=== PATIENT | female | born 2005 | race Caucasian/White ===

== ENCOUNTER 2025-07-06 09:10 | Outpatient (AMB) | payer OTHER, SELFPAY ==
--- OUTSIDE RECORDS SUMMARY | 2024-10-17 09:30 | XMS_ITS ---
Author Organization [facility] Address [address] [place] [address] [address] [place], [place] [id number] Care Team Providers Care Oil Truck Driver Name Role Phone Thuan BARRON, Steve Unavailable Unavailable Junito Flores Unavailable [phone] REASON FOR VISIT Flores/NEW/Left Hip Encounters Encounter Location Date Provider Diagnosis [facility] [address] [facility] [address] [place], [place] [id number] 10/17/2024 Junito Flores Plan Of Treatment No Information Progress Notes * [place] MCKENZIEB:2005 (20 yo F)Acc No.[id number]:10/17/2024 Progress Note Patient: Awilda Pappas Provider: Ramonita Flores MD :2005 A ge:19 Y S ex:Female Date:10/17/2024 Phone: Address:[address] [facility] Subjective: * Chief Complaints: * P rice/NEW/Left Hip * Electronic signature of Junito Flores MD on 07/06/2025 at 09:20 AM OTHER SPORTS COACH OR INSTRUCTOR Sign off status: Pending * Provider: Ramonita Flores MD Date: 0 10/17/2024 Generated for Priscilla obando/Avril/eTransmitting on: 1 09/06/2024 09:20 AM OTHER SPORTS COACH OR INSTRUCTOR
--- OUTSIDE RECORDS SUMMARY | 2024-11-21 04:00 | XMS_ITS ---
Author Organization [facility] Address [address] [id number] Care Team Providers Care Photovoltaic Solar Cell Designer Name Role Phone Steve Larose MD Unavailable Unavailable Douglas Haq Unavailable [phone] REASON FOR VISIT Dierckman/Left hip Encounters Encounter Location Date Provider Diagnosis [address] [place], [place] [id number] 11/21/2024 Douglas Haq Labral tear of left hip joint S73.192A and Femoroacetabular impingement of left hip M25.852 Assessments Encounter Date Diagnosis (ICD Code) Assessment Notes Treatment Notes Treatment Clinical Notes Section Notes 11/21/2024 Labral tear of left hip joint (ICD-10 - S73.192A) 11/21/2024 Femoroacetabular impingement of left hip (ICD-10 - M25.852) Plan Of Treatment No Information Progress Notes * Melania MCKENZIEKellieB:2005 (20 yo F)Acc No.[id number]:11/21/2024 Patient: Awilda Pappas Provider: Pranav Haq MD :2005 A ge:19 Y S ex:Female Date:11/21/2024 Phone: Address[facility] [facility] Billing Information: * Procedure Codes: 98426 SCOPE HIP LABRAL REPA[place] [address] SCOPE HIP WITH FEMOROPLASTY. Modifiers: LT G9316 DOC PT RSK ASSESS RSK CALC W/PT/FAM. * Electronic signature of Mary Jane Haq MD on 07/06/2025 at 09:19 AM CAMERA SYSTEMS ENGINEER Sign off status: Pending * Provider: Pranav Haq MD Date: 0 11/21/2024 Generated for Priscilla obando/Avril/Arielle on: 1 09/06/2024 09:19 AM CAMERA SYSTEMS ENGINEER
--- NOTE | 2025-07-06 09:06 | A.OFFPC_ITS ---
Vital Signs 07/06/25 09:10 Height 5 ft 1 in Weight 126 lb BMI 23.8 BP 122/70 Blood Pressure Location Rt brachial Position Sitting Pulse 62 Pulse Source Pulse Oximeter Temp 98 F Temp Source Temporal Artery Scan Pulse Oximetry (%) 99 Oxygen Delivery Method Room Air Intake Visit Reasons: DICTAPHONE TYPIST-ACNE Labor Commissioner Required: No Accompanied by: Self / Same As Patient Allergies No Known Allergies Allergy (Verified 07/06/25 09:08) Medication List - Last Reconciled 07/06/25 by Rickey Oliveira MD etonogestrel (Nexplanon) subdermal Tobacco use date assessed: 07/06/25 Dental Screening Dental Screen Date: 07/06/25 Did you have a dental visit in the last 12 months?: No Did you have a dental problem in the last 6 months where you did not have access to dental care?: No HPI HPI Comments History of Present Illness0 Details History of Present Illness The patient is a 20 year old female presenting for evaluation of a facial lesion and to establish care. This is her first visit at an adult practice after previously seeing a special duty nurse. The primary concern is a facial lesion that has been present for two to three weeks, which has been getting bigger, redder, and painful. The lesion bled the day prior to the visit, and she reports that when it bleeds, the size decreases before it re-forms. She has tried using pimple patches and antibiotic cream without any improvement. She denies any yellowish discharge from the lesion. The patient's past surgical history is significant for a hip labrum repair following an MRI-confirmed tear. She uses a Nexplanon implant for contraception, which was placed on 07/30/2023 and is due for replacement in 2028. She reports a past history of a Pap smear. Her family history is positive for heart murmurs but negative for sudden cardiac . She denies any personal history of smoking or alcohol use, and reports past marijuana use a couple of years ago but is not a current user. She has no known allergies. Medical History: - Establishing care with new primary car e provider - No chronic medical conditions Surgical History: - Hip labrum surgery Medications: - Nexplanon subdermal implant for contra ception, placed 07/30/2023 Family History: - Heart murmurs - Denies family history of sudden cardia c deaths Social History - Occupation: Works at the [employer]. - Sun Exposure: Denies significant sun e xposure due to work. - Tobacco Use: Denies smoking. - Alcohol Use: Denies alcohol use. - Substance Use: Denies current use; rep orts using marijuana a couple of years ago. - Contraception: Uses a Nexplanon implan t. [facility] Medical History (Updated 07/06/25 @ 09:46 by Rickey Oliveira MD) Annual physical exam Encounter for surveillance of other contraceptives Lesion of face Family History (Updated 07/06/25 @ 09:18 by Clarice Luna MA) Mother No problems noted. Father No problems noted. Social History Housing: House Patient Tobacco Use Status: Never used Tobacco e-Cigarette/Vaping Use: Never Used service: No Current occupational status: employed Cognitive needs: No Hearing needs: No Vision needs: No Questionnaire PHQ-9 Over the last 2 weeks, how often have you been bothered by any of the following problems? 1. Little interest or pleasure in doing things: not at all 2. Feeling down, depressed, or hopeless: not at all 3. Trouble falling or staying asleep, or sleeping too much: nearly every day 4. Feeling tired or having little energy: not at all 5. Poor appetite or overeating: not at all 6. Feeling bad about yourself - or that you are a failure or have let yourself or your family down: not at all 7. Trouble concentrating on things, such as reading the newspaper or watching television: not at all 8. Moving or speaking so slowly that other people could have noticed. Or the opposite - being so fidgety or restless that you have been moving around a lot more than usual: not at all 9. Thoughts that you would be better off or of hurting yourself in some way: not at all Total score: 3 Depression Screening Interpretation: Negative Depression Screening Done: Yes 33941 - PHQ-9 Billing: Yes Source: Developed by Drs. Sahil Cooper, Bettie Loo, Alex Hagan and colleagues, with an educational charlette from [employer]. Thrive Questionnaire Date Thrive assessed: 07/06/25 I am a: Patient Within the past 12 months, did the food you bought not last and you didn't have the money to get more?: Never true Within the past 12 months, did you worry whether your food would run out before you got money to buy more?: Never true Do you have trouble paying for medicines?: No Do you have trouble getting transportation to medical appointments?: No Do you have trouble paying your heating and electricity bill?: No Do you have trouble taking care of your child, family member or friend?: No Do you have trouble with day-to-day activities such as bathing, preparing meals, shopping, managing finances, etc.?: No Are you currently unemployed and looking for a job?: No Are you interested in more education?: No THRIVE Score: 0 AUDIT C Alcohol Use Questionnaire (AUDIT-C) 1. How often do you have a drink containing alcohol?: Never 3. How often do you have six or more drinks on one occasion?: Never Total Score: 0 MARYANN-7 AMB Questionnaire MARYANN-7 Date MARYANN - 7 assessed: 07/06/25 Feeling nervous, anxious, or on edge: 0 = Not at all Not being able to stop or control worryin = Not at all Worrying too much about different things: 0 = Not at all Trouble relaxin = Not at all Being so restless that it is hard to sit still: 0 = Not at all Becoming easily annoyed or irritable: 0 = Not at all Feeling afraid as if something awful might happen: 0 = Not at all Total MARYANN-7 score (0-4 normal; 5-9 mild; 10-14 moderate; 15-21 severe): 0 Source: Developed by Drs. Sahil Cooper, Bettie Loo, Alex Hagan and colleagues, with an educational charlette from [employer]. MARYANN-7 Assessment Billing MARYANN-7 Assessment Tool: MARYANN-7 Assessment 33708 Review of Systems Narrative Review of Systems - Constitutional: Denies excessive weight loss or weight gain, fevers, or chills. - Integumentary: Reports a growing, red, and painful lesion on her face for the past 2-3 weeks that intermittently bleeds. - All other systems reviewed and are negative. All systems reviewed & are unremarkable except as reviewed in HPI and above Physical exam (Primary Care) Vital Signs: Last Vital Signs Temp 98 F 07/06/25 09:10 Pulse 62 07/06/25 09:10 BP 122/70 07/06/25 09:10 Pulse Ox 99 07/06/25 09:10 Oxygen Delivery Method Room Air 07/06/25 09:10 BMI result Body Mass Index 23.8 Tobacco/Smoking Status: Tobacco use Status Tobacco use date assessed 07/06/25 07/06/25 09:10 Patient Tobacco Use Status Never used Tobacco 07/06/25 09:10 e-Cigarette/Vaping Use Never Used 07/06/25 09:10 PHQ-9: PHQ-9 Score PHQ-9: Total score 3 07/06/25 09:46 Depression Screening Interpretation: Negative Thrive Assessment: Date of Thrive Assessment Date Thrive assessed 07/06/25 07/06/25 09:10 Narrative Physical Exam General: +Alert and oriented, Well nourished, No acute distress. Eye: Pupils are equal, round and reactive to light, Intact accommodation, Extraocular movements are intact, Normal conjunctiva, Vision unchanged. HENT: Normocephalic, Atraumatic, Tympanic membranes are clear, Normal hearing, Oral mucosa is moist, No pharyngeal erythema, Ear canals patent. Respiratory: Lungs CTA bilaterally, No wheeze, Respirations are non-labored. Cardiovascular: Regular rate, Regular rhythm, S1 auscultated, S2 auscultated, No murmur, Good pulses equal in all extremities, Normal peripheral perfusion, No edema. Gastrointestinal: Soft, Non-tender, Non-distended, Normal bowel sounds, No organomegaly. Musculoskeletal: Normal range of motion, Normal strength, No tenderness, No swelling, No deformity, Normal gait. Integumentary: Warm, Dry, [place], Intact, Lesion on face noted, described as crusted over, painful, and occasionally bleeding. Neurologic: Alert, Oriented, Normal sensory, Normal motor function, No focal defects, Cranial Nerves II-XII are grossly intact, Normal deep tendon reflexes. Psychiatric: Cooperative, Appropriate mood & affect, Normal judgment. Coding Level of Care Code New Pt Prev Care 18-39yr(95393 Diagnoses Lesion of face L98.9 Encounter for surveillance of other contraceptives Z30.49 Annual physical exam Z00.00 Additional Codes MARYANN-7 Assessment Billing - MARYANN-7 Assessment Tool: MARYANN-7 Assessment 74213 ([id number]) PHQ-9 - 78982 - PHQ-9 Billing: Yes ([id number]) Assessment & Plan Assessment & Plan (1) Lesion of face: Comment: - The patient presents with a painful, crusted facial lesion of 2-3 weeks duration. - The differential is broad but a secondary bacterial infection is possible. - It does not appear to be acne. - The plan is to start doxycycline 100 mg for 5 days to cover for a potential skin and soft tissue infection. - The patient was advised not to manipulate the lesion and to let it dry out. - A referral to dermatology will be placed for further evaluation. - The patient was educated on red flag symptoms, including spreading erythema, or involvement of the eyes, jaw, or teeth, which would warrant an emergency room visit. Code(s): L98.9 - Disorder of the skin and subcutaneous tissue, unspecified Category: Medical (2) Encounter for surveillance of other contraceptives: Comment: - The patient is on a Nexplanon implant for control, which was placed on 07/30/2023. - The device is current and does not need to be replaced until 2028. - No changes to her contraceptive plan are indicated at this time. Code(s): Z30.49 - Encounter for surveillance of other contraceptives Category: Medical (3) Annual physical exam: Comment: - This visit serves to establish primary care for this 20-year-old female. - A baseline annual physical was performed. - Baseline labs including a CBC, CMP, lipid panel, TSH, vitamin D, HIV screen, syphilis screen, hepatitis panel, and urinalysis will be ordered. - Her Pap smear history was reviewed, and she reports having had one in the past. - She has an upcoming appointment for her flu shot. - The patient will follow up in one year for her next annual exam, or sooner if needed. - She will be called with any abnormal lab results. Code(s): Z00.00 - Encounter for general adult medical examination without abnormal findings Category: Medical Plan: Health Maintenance: - Annual physical examination performed. - Baseline labs ordered including: CBC, CMP, lipids, thyroid function, vitamin D, HIV screen, syphilis screen, hepatitis panel, and urinalysis. - Pap smear: Patient reports having prior screening. - Contraception: Patient is using a Nexplanon subdermal implant, placed 07/30/2023. - Immunizations: Patient has an appointment scheduled for her flu shot and declined receiving it during the visit. Patient was informed and verbally consented to the use of an ambient scribe for clinic note documentation during this visit. Vital signs reviewed. Comprehensive history, review of systems, and physical exam completed. Medications, allergies, and problem list reviewed and updated. Counseling provided on nutrition, regular exercise, sleep hygiene, and moderation of alcohol use. Discussed age-appropriate screenings (mammogram, colonoscopy, Pap, bone density) and immunizations (flu, COVID, shingles, Tdap). Screened for depression, fall risk, and home safety; no current concerns. Discussed stress management, dental and vision care, and importance of ongoing preventive follow-up. Routine labs ordered for metabolic and lipid screening. Patient educated on healthy lifestyle and agrees with the plan. Plan I discussed my findings regarding the patient's facial lesion, explaining that it appears to be a crusted lesion rather than acne. For safety, I have prescribed a course of doxycycline in case of an underlying infection. I advised her not to touch the lesion and to allow it to dry out. I also placed a referral to dermatology for specialist evaluation, noting that she could cancel it if the lesion resolves. I educated her on the warning signs that would necessitate a visit to the emergency room, such as spreading redness or involvement of her eyes, jaw, or teeth. We treated this visit as her annual physical and I informed her that I was ordering a comprehensive set of baseline bloodwork and a urine test. I informed her that she will be contacted with any abnormal results and that she should follow up in one year for her next routine exam. I also provided instructions on how to set up her patient portal to view results and communicate with the clinic. Orders: Orders Hemoglobin A1c Today Z00.00 - Encounter for general adult medical examination without abnormal findings Hepatitis A,B,C Profile Today Z00.00 - Encounter for general adult medical examination without abnormal findings Microalbumin, Random (w Creat) Today Z00.00 - Encounter for general adult medical examination without abnormal findings TSH reflex Free T4 Today Z00.00 - Encounter for general adult medical examination without abnormal findings Complete Blood Count Auto Diff Today Z00.00 - Encounter for general adult medical examination without abnormal findings Comprehensive Met. Panel Today Z00.00 - Encounter for general adult medical examination without abnormal findings HIV Ab/Ag Today Z00.00 - Encounter for general adult medical examination without abnormal findings Lipid Panel Today Z00.00 - Encounter for general adult medical examination without abnormal findings Syphilis Screen Today Z00.00 - Encounter for general adult medical examination without abnormal findings Vitamin D 25-OH Total Today Z00.00 - Encounter for general adult medical examination without abnormal findings Referrals Dermatology Referral L98.9 - Disorder of the skin and subcutaneous tissue, unspecified Medications: New doxycycline hyclate 100 mg PO BID 10 caps 0RF Patient Instructions: - Take the doxycycline prescription for 5 days as directed. - Do not touch, cover, or pick at the lesion on your face. - Let the lesion dry out, but you may moisturize the area around it. - Go to the emergency room if the lesion's redness spreads or if it involves your jaw, teeth, or eyes. - A referral to a student records specialist (university teacher) has been made, and their office will contact you for an appointment. - Please go to the lab across the [place] to have your blood work done. - You will be contacted if any of your lab results are abnormal. - Information was provided to sign up for the patient portal to view your results. - Please keep your scheduled appointment to receive your flu shot. - Schedule your next annual physical exam for one year from now.
[2025-07-06 09:10] VITALS: BP 122/70; PULSE 62; TEMP 36.6; O2SAT 99; BMI 23.8
--- OUTSIDE RECORDS SUMMARY | 2025-07-06 10:19 | XMS_ITS | Encounter Summary ---
Author Organization [facility] Address [address] [place] [address] Phone Care Team Providers Care Sailboat Captain Name Role Phone Dania Tyler MD Primary Care Provider [phone] Encounter Details Date Type Department Care Team (Late st Contact Info) Description 09/14/2009 Documentation [facility] Family Medicine [address] [place] [address] Family Medicine, Physician [address] [place], [place] [address] Social History Tobacco Use Types Packs/Day Years Used Date Smoking Tobacco: Never Assessed Comments Unknown Sex and Gender Information Value Date Recorded Sex Assigned at Female 04/21/2023 3:23 PM EDT Legal Sex Female 6:13 PM EDT Gender Identity Female 04/21/2023 3:23 PM EDT Sexual Orientation Straight 04/21/2023 3: 23 PM EDT documented as of this encounter Plan of Treatment Not on file documented as of this encounter Visit Diagnoses Not on filedocumented in this encounter Care Teams Sailboat Captain Relationship Specialty Start Date End Date Dania Tyler MD [address] [place] [address] PCP - General Pediatrics 02/25/18 04/14/24 documented as of this encounter
--- OUTSIDE RECORDS SUMMARY | 2025-07-06 10:19 | XMS_ITS | Encounter Summary ---
Author Organization [facility] Address [address] [place] [address] Phone Care Team Providers Care Equipment Application Specialist Name Role Phone Dania Tyler MD Primary Care Provider [phone] Encounter Details Date Type Department Care Team (Late st Contact Info) Description 08/24/2009 [place] [facility] [address] [place] [address] Family Medicine, Physician [address] [place], [place] [address] Social History Tobacco Use Types Packs/Day Years [...] on filedocumented in this encounter Care Teams Equipment Application Specialist Relationship Specialty Start Date End Date Dania Tyler MD [address] [place] [address] PCP - General Pediatrics 02/25/18 04/14/24 documented as of this encounter
--- OUTSIDE RECORDS SUMMARY | 2025-07-06 10:20 | XMS_ITS | Encounter Summary ---
Author Organization [facility] Address [address] [place] [address] Phone Care Team Providers Care Helpdesk Analyst Name Role Phone Dania Tyelr MD Primary Care Provider [phone] Encounter Details Date Type Department Care Team (Late st Contact Info) Description 12/06/2017 Conversion Encounter [facility] [address] [place], [place] [id number] Social History Tobacco Use Types Packs/Day Years [...] on filedocumented in this encounter Care Teams Helpdesk Analyst Relationship Specialty Start Date End Date Dania Tyler MD [address] [place] [address] PCP - General Pediatrics 02/25/18 04/14/24 documented as of this encounter
--- OUTSIDE RECORDS SUMMARY | 2025-07-06 10:20 | XMS_ITS | Encounter Summary ---
Author Organization [facility] Address [address] [place] [address] Phone Care Team Providers Care Director Security Risk Management Name Role Phone Dania Tyler MD Primary Care Provider Reason for Visit * Reason Comments Med Refill Encounter Details Date Type Department Care Team (Late st Contact Info) Description 11/10/2022 [facility]ill [facility] [address] [address] Dania Tyler MD [address] [place] [phone] Menorrhagia with irregular cycle Social History Tobacco Use Types Packs/Day Years Used Date Smoking Tobacco: Never Assessed Hunger/Food Answer Date Recorded In the last 12 months, did y ou or your family ever eat less than you felt you should because there wasn't enough money for food? No 08/23/2020 Stable Housing Answer Date Recorded Are you worried that in the next 2 months you may not have stable housing? No 08/23/2020 Transportation Concerns Answer Date Rec orded In the last 12 months, have you or your family ever had to go without healthcare because you didn't have a way to get there? No 08/23/2020 Hazards in Home Answer Date Recorded Think about the place you li ve. Do you have problems with any of the following? Pests (mice or roaches), mold, no/not working smoke detectors, water leaks, no window guards. No 2020 Financing Utilities Answer Date Recorde d In the last 12 months, has t he electric, gas, oil, or water company threatened to shut off your services in your home? No 08/23/2020 Safety at Home Answer Date Recorded Are you or your family worried about feeling saf e in your home? No 08/23/2020 Outside Support Answer Date Recorded Do you feel that you need mo re support from other people or programs to help you care for yourself or your family? No 08/23/2020 Understanding Health Concerns Answer Da te Recorded Do you need help understandi ng your or your child's healthcare needs (diagnosis, medications, plan, etc.)? No 08/23/2020 Financing Health Concerns Answer Date R ecorded In the last 12 months, was t here a time when your child needed to see a doctor or get medications or supplies but could not because of cost? No 08/23/2020 Missing School or Work Answer Date Xavier rded Did you or your child miss s chool or work because of a health problem that could have been avoided? No 08/23/2020 Comments No Sex and Gender Information Value Date Recorded Sex Assigned at Female 04/21/2023 3:23 PM EDT Legal Sex Female 6:13 PM EDT Gender Identity Female 04/21/2023 3:23 PM EDT Sexual Orientation Straight 04/21/2023 3: 23 PM EDT documented as of this encounter Miscellaneous Notes * Telephone Encounter - Tommie Cavazos DO - 11/10/2022 12:42 PM EDT rx reviewed and eprescribed to patient's pharmacy * Telephone Encounter - Tommie Cavazos DO - 11/10/2022 12:42 PM EDT rx reviewed and eprescribed to patient's pharmacy * Telephone Encounter - Yessenia Mccormack CMA - 11/10/2022 8:53 AM EDT Refil request for OCP Last refill 05/12/22 Last wcc 08/23/20 No showed for wcc scheduled on 09/26/22 documented in this encounter Plan of Treatment Not on file documented as of this encounter Visit Diagnoses Diagnosis Menorrhagia with irregular cycle documented in this encounter Care Teams Director Security Risk Management Relationship Specialty Start Date End Date Dania Tyler MD [address] [place] [id number] PCP - General Pediatrics 02/25/18 04/14/24 documented as of this encounter
--- OUTSIDE RECORDS SUMMARY | 2025-07-06 10:20 | XMS_ITS | Clinical Summary ---
Author Organization [facility] Prior to 12/17/[address] [place] [address] Care Team Providers Care Hematology Specialist Name Role Phone Unavailable Primary Care Provider Unavailabl e Social History Tobacco Use Types Packs/Day Years Used Date Smoking Tobacco: Never Assessed Sex and Gender Information Value Date Recorded Sex Assigned at Not on file Gender Identity Not on file Sexual Orientation Not on file Plan of Treatment Not on file
--- OUTSIDE RECORDS SUMMARY | 2025-07-06 10:20 | XMS_ITS | Patient Health Record ---
Author Organization [facility] Address [address] [id number] Care Team Providers Care J2Ee Java Developer Name Role Phone Steve Larose MD Unavailable Unavailable Douglas Haq Unavailable [phone] Junito Flores Unavailable [phone] Carie Diaz Unavailable [phone] Francisco Rg Unavailable [phone] Zulay Holly Unavailable [phone] Allergies No Known Allergies Results Component Value Reference Range Notes XRAY Lt hip, Post op hip sco pe 2-3 views Reviewed date:11/25/2024 01:30:15 PM Interpretation: Performing Lab: Notes/Report: XRAY hip, with pelvis; minim um of 4 views (LT) Reviewed date:10/27/2024 02:03:24 PM Interpretation: Performing Lab: Notes/Report: Reason For Referral Reason Left hip/OP Diagnosis 1 Labral tear of left hip joint (S73.192A) Diagnosis 2 Femoroacetabular imp ingement (M25.859) Referral Organization [facility] Referring Provider First Name Douglas Referring Provider Last Name Severino Referring Provider Speciality Orthopedic Surgery Referred Organization [facility] Referred Address [address] [place] [address], [address],[place], [id number], Referred Provider Specialty Pre-Authoriz ation Procedure 1 Aluminum Crutches (N ot Wood) (E0114) Procedure 2 SCOPE HIP LABRAL REP AIR (15303) Procedure 3 SCOPE HIP WITH FEMOR OPLASTY (19283) General Notes Consuelo Rios 11/02 07:48:53 AM > SELECT ACTIVE DUTY, DED MET, OOP CAP $1288/ $242.03, 80/20, SUBMIITED AUTH REQUEST ON PORTAL., Consuelo Rios 11/03/2024 01:40:06 PM > APPROVED AUTH# [id number] VALID 11/15/24-05/13/25-LEFT HIP 70672, [address]. Clinical Notes Tammy Luque 0 11/01/2024 04:45:02 PM >Left hip arthroscopy, labrarl repair, femoroplasty, capsular closure; 90 minutes; 2-3 day PO appt; PT to start PO day 3-5 Referral Priority Routine Referral Appointment Date 11/21/2024 Reason pt- left hip Diagnosis 1 Left hip pain (M25.5 52) Referral Organization [facility] Referring Provider First Name Douglas Referring Provider Last Name Severino Referring Provider Speciality Orthopedic Surgery Referred Provider Specialty Physical The rapist Referral Priority Routine Medications Medication SIG (Take, Route, Frequency, Duration) Notes Start Date End Date Status metroNIDAZOLE 500 MG Tablet Oral; Duration: 7 Days Active Cyclobenzaprine HCl 10 MG Tablet Oral; Duration: 7 Days Activ e Fluconazole 150 MG Tablet Oral; Duration: 4 Days Active Nitrofurantoin Monohyd Macro 100 MG Capsule Oral; Duration: 5 Days Act josie Social History Social History Drug/Alcohol: Social Info Question Answer Notes AUDIT-C (Standard) Did you have a drink containing alcohol in the past year? No Caffeine Intake: 1-2 cups per day Additional Details Category Social Info Options Details Miscellaneous: Exercise: daily Occupation/School Attends: [employer] Dominant hand: Left Advance Directive: N/A Fall Risk: N/A Osteoporosis Screening: no Tobacco Use: Exercise: daily Occupation/School Attends: [employer] Dominant hand: Left Advance Directive: N/A Fall Risk: N/A Osteoporosis Screening: no Problems Problem Type SNOMED Code ICD Code Onset Dates Problem Status W/U Status Risk Notes Problem Arthralgia of the pelvic region and thigh (043264385) Left hip pain (M25.552) Active confirmed Problem Femoroacetabular impingement (180406211) Femoroacetabular impingement (M25.859) Active confirmed Problem Labral tear of left hip joint (S73.192A) Active confirmed Vital Signs Height-cm 154.94 cm 11/02/2024 Weight-kg 54.89 kg 11/02/2024 Height 61 in 11/02/2024 Weight 121 lbs 11/02/2024 BMI 22.86 kg/m2 11/02/2024 Procedures Procedure Date Ordered Date Performed Result Body Sit e Physical Therapy Order 11/25/2024 12/08/2024 N/A Physical Therapy Order 12/27/2024 02/17/2025 N/A Encounters Encounter Location Date Provider Diagnosis [address] [place], [place] [id number] 11/21/2024 Douglas Haq Labral tear of left hip joint S73.192A and Femoroacetabular impingement of left hip M25.[address] [address] 10/27/2024 Douglas Haq Left hip pain M25.[address] [place] [address] 11/02/2024 Carie Diaz Left hip pain M25.55 2 ; Encounter for other orthopedic aftercare Z47.89 ; Tear of left acetabular labrum, initial encounter S73.192A and Femoroacetabular impingement of left hip M25.[address] [place] [address] 11/25/2024 Carie Diaz Left hip pain M25.[address] [address] 11/25/2024 Francisco Frazieri Pain in left hip M25.[address] [place] [address] 12/20/2024 Carie Diaz Labral tear of left hip joint S73.192A ; Femoroacetabular impingement M25.859 and Left hip pain M25.[address] [place] [address] 02/28/2025 Zulay Holly Postoperative visit Z48.89 [facility] [address] [id number] 11/25/2024 Douglas Haq Left hip pain M25.55 2 [facility] [address] [facility] [address] [place], [place] [id number] 12/09/2024 Douglas Haq Assessments Encounter Date Diagnosis (ICD Code) Assessment Notes Treatment Notes Treatment Clinical Notes Section Notes 10/27/2024 Left hip pain (ICD-10 - M25.552) 11/02/2024 Encounter for other orthopedic aftercare (ICD-10 - Z47.89) 11/02/2024 Left hip pain (ICD-10 - M25.552) 11/21/2024 Labral tear of left hip joint (ICD-10 - S73.192A) 11/25/2024 Left hip pain (ICD-10 - M25.552) 11/25/2024 Left hip pain (ICD-10 - M25.552) k 11/25/2024 Pain in left hip (ICD-10 - M25.552) 12/20/2024 Femoroacetabular impingement (ICD-10 - M25.859) 12/20/2024 Labral tear of left hip joint (ICD-10 - S73.192A) 02/28/2025 Postoperative visit (ICD-10 - Z48.89) 11/21/2024 Femoroacetabular impingement of left hip (ICD-10 - M25.852) 12/20/2024 Left hip pain (ICD-10 - M25.552) 11/02/2024 Tear of left acetabular labrum, initial encounter (ICD-10 - S73.192A) 11/02/2024 Femoroacetabular impingement of left hip (ICD-10 - M25.852) 10/27/2024 Other 19 yo female with chronic left hip pain, cam MARINA with chondral labral tearing. I reviewed the patient's history, physical exam and imaging findings and discussed the diagnosis/diagno ses in detail and used models, diagrams and drawings to explain the pertinent pathophysiology. We discussed the various treatment options available and the risks/benefits and likelihood of success of each and all questions were answered. We discussed treatment options at length. She wants to get this fixed at this point as injections and therapy and NSAIDs and activity modifications are not helping. Will plan for a left hip arthroscopy, labral repair, femoroplasty and capsular closure. We will have the patient continue with NSAIDs as needed/tolerated , icing as needed along with activity modifications. 11/02/2024 Other The patient has elected to proceed with surgery. We discussed details of the planned procedure and typical recovery period and models and drawings were used as needed. All questions were answered. Risks and benefits were reviewed in detail, which include but are not limited to bleeding, infection, stiffness, DVTs, persistent or worsening of pain and/or dysfunction, retear of labrum, heterotopic ossification, nerve injury, need for further procedures in the future along with other uncommon unforeseen complications. All questions were answered and informed consent was provided in clinic. discussed postop plans, incision care, pain medication, clot prevention, antibiotics, devices if needed etc. We will plan to move forward with left hip arthroscopy with labral repair and femoroplasty with capsular closure. 11/25/2024 Other begin PT, nsaids, tylenol, pain medication prn, incision care dicsussed k 12/20/2024 Other continue PT regimen, nsaids prn, easing into activities, answered questions. One more recheck 3 mos postop 02/28/2025 Other Impression: 1. s/p left hip arthroscopy with labral repair, femoroplasty, and capsular closure (11/21/24) Plan: -This was a audio & visual because patient lives far. Pt was at home during the visit and I was located in the office. total time on this a/v encounter 5 minutes of discussion beginning at 3:21 pm, chart review, image review, and planning. -She has done well post-op. No acute concerns. Would continue working with PT to ease her back into a running program. 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 Gradual increase in mileage as symptoms allow. Okay for agility work. No restrictions but advised to let pain be a guide as she increases her activity. She can transition to HEP as she feels comfortable. Continue NSAIDs and ice/heat as needed. Would expect continued improvement and return to ADLs. Advised to follow-up as needed if she struggles to do so. She demonstrated understanding and no further questions or concerns. Plan Of Treatment No Information Insurance Providers Payer Name Payer Address Payer Phone Subscriber Number Group Number Insured Name Patient Relationship to Insured Coverage Start Date Coverage End Date [facility] [id number] [place] [phone] [id number] Eric, Christopher Spouse - patient is the spouse of the insured Medical (General) History Medical History History ICD Code Medical History: anxiety Other: no Cancer (type of cancer): no Surgical History Surgery Date(Month/Year) Left hip arthroscopy, labrarl repair, fe moroplasty, capsular closure 11-21-2024
--- OUTSIDE RECORDS SUMMARY | 2025-07-06 10:20 | XMS_ITS | Encounter Summary ---
Author Organization [facility] Address [address] [place] [address] Phone Care Team Providers Care Coding Coordinator Name Role Phone Dania Tyler MD Primary Care Provider [phone] Reason for Visit * Reason Comments Med Refill Encounter Details Date Type Department Care Team ([facility] st Contact Info) Description 09/26/2018 [facility]ill [facility] [address] [address] Tommie Cavazos DO [address] [place] [address] Encounter for routine child health examination with abnormal findings Social History Tobacco Use Types Packs/Day Years Used Date Smoking Tobacco: Never Assessed Comments No Sex and Gender Information Value Date Recorded Sex Assigned at Female 04/21/2023 3:23 PM EDT Legal Sex Female 6:13 PM EDT Gender Identity Female 04/21/2023 3:23 PM EDT Sexual Orientation Straight 04/21/2023 3: 23 PM EDT documented as of this encounter Miscellaneous Notes * Telephone Encounter - Dania Tyler MD - 09/27/2018 9:40 AM EDT Was told depo specifically interacts with current medication. Can't do depo * Telephone Encounter - Tomeka Ba - 09/27/2018 8:36 AM EDT Request for depo wcc 06/06 ocp check 08/06 states no to depo, on patch .. Can you refuse if needed documented in this encounter Plan of Treatment Not on file documented as of this encounter Visit Diagnoses Diagnosis Encounter for routine child health examination with abnormal findings documented in this encounter Care Teams Coding Coordinator Relationship Specialty Start Date End Date Dania Tyler MD [address] [place] [address] PCP - General Pediatrics 02/25/18 04/14/24 documented as of this encounter
--- OUTSIDE RECORDS SUMMARY | 2025-07-06 10:20 | XMS_ITS | Clinical Summary ---
Author Organization [facility] Address [address] [place] [address] Phone Care Team Providers Care Cooking Appliance Repair Technician Name Role Phone Unavailable Primary Care Provider Unavailabl e Allergies No known active allergies Medications predniSONE 50 MG tablet TAKE 1 TABLET BY MOUTH DAILY FOR 4 DAYS,START DOSING TOMORROW 10/23/2023 Active Active Problems Problem Noted Date Diagnosed Date Low TSH level 11/08/2021 Overview (10/29/2023): 0.67 on 11.08.2021. normal TSH (1.0) 12/2022 with normal fT4. Lower on recheck 10/2023. Referral to adult endocrinology Intermittent explosive disorder 07/16/2021 Nevus 11/21/2019 Assessment & Plan (11/21/2019 7:28 PM EDT): Reassurance that small nevus on anterior left side of neck appears benign and is not melanoma. To monitor for changes. Motor tic disorder 03/16/2018 Overview (03/16/2018): neuro referral for tics, appt with Daily 03/02/14, dx simple motor tic (eye blinking) follow with psychiatry. second opinion requested by family, referral to [facility] neuro, appt 05/19/14, no showed for appt. re-referral for pre-syncope and continued tics, appt 11/20/[address] Diamond - family missed/no showed neuro apt Depression with anxiety 06/15/2017 Mood disorder 06/15/2017 Overview (03/25/2018): Adjustment/Behavior Issues 11/24; OCD 07/27. [facility] for Crisis 2010 Adjustment disorder with mixed emotional features. Saw Dr [place], [facility], for med mgmt as of 2011 Syncope 09/26 ; EKG nl partial hospitalization 09/2013-10/2013. home with services from [facility] and [facility] pt in [facility] 11/16/13 for crisis evaluation. as of 12/2013 residing at [facility], outpt clinician Ladi Batista Nimo. DCF worder Kay Boyle [facility] psychological re-eval 12/31 suggested some elements of autistic spectrum disorder, ADHD, below average global IQ of 79 partial hospitalization 06/26-07/04/14, discharged with [facility] 11/01 ED visit for near-syncope at [facility], EKG normal 12/2014 [facility] crisis visit for violent behavior, went home with mobile crisis in-home evaluation 10/02 crisis visit [facility] for bed search, sent from [facility]. discharged from [facility] ([facility]) 11/2015 to residential [facility] Near sycope episode; EKG normal 12/02 03/05 labs for dizziness and headache - normal TFTs, LFTs, electrolytes, CBC Admission Partial 03/12 - 03/17/18. Follow up appt 03/18/18 with [facility] med prescriber Stacy Cabezas Assessment & Plan (04/21/2023 3:23 PM EDT): Feeling stable off of meds currently Assessment & Plan (06/18/2018 4:27 PM EST): Sees therapist and now med provider through [facility]. Taking meds consistently. Doing well in school Resolved Problems Problem Noted Date Diagnosed Date Resolved Date Bilateral chronic serous otitis media 10/10/2021 11/07/2021 Overview (11/07/2021): Saw ENT 10/2021, felt dizziness was related to migraines. No otitis Assessment & Plan (10/10/2021 1:24 PM EDT): Will increase Flonase to 2 sprays/nostril/day (reviewed how to aim the medicine) and add Zyrtec 10 mg. F/u as planned with ENT in October, to call sooner with increased pain, worsening symptoms, or other concerns. Chronic low back pain 11/28/20192020 Overview (11/28/2019): 11/21/19. Lumbar x-ray normal. To refer to physical therapy if not improving with low back pain exercises. Other viral warts 11/21/2019 08/20/2020 Assessment & Plan (11/21/2019 7:29 PM EDT): To RTC for a wart visit if would like them treated again. Other proteinuria 11/21/2019 08/20/2020 Overview (01/15/2020): 11/22/2019 urine protein:creatinine ratio was elevated at 0.21 12/13/2019 urine protein:creatinine level was normal. Assessment & Plan (06/18/2020 6:06 PM EST): To check first a.m. urine for protein, cup and wipes given. To check for protein and urine protein:creatinine ratio. Assessment & Plan (11/21/2019 7:29 PM EDT): Will have her do a first a.m. urine to check for protein again and if still has protein will send urine out for Urinalysis and urine protein:creatinine ratio. Encounters Date Type Department Care Team Description 06/23/2025 Telephone [facility] [address] [address] Dania Tyler MD Release of records from Last 3 Months Immunizations Immunization Administration Dates Next Due COVID-19 Pfizer, seasonal, 12+ years 04/21/2023 COVID-19 Pfizer, hilary-sucros e, 12+ years 05/12/2022 DTaP 03/15/2008, 4,2003,08/08,2003 H1N1 09/14/2009 HPV Vaccine 9 Valent 05/07/2015 HPV, Quadrivalent 05/02/2014 Hep A, ped/adol 06/18/2018,06/15/2017 Hep B, ped/adol 01/17/2004,2003,2003 Hib (PRP-T) 07/01/2004, 4,2003,06/08 IPV 03/15/2008, 4,2003,06/08 Influenza 05/20/2007,06/03/2006 Influenza, injectable, quadrivalent 03/21,07/20/2011,04/13/2010,06/07 Influenza, injectable, quadr ivalent, preservative free 04/21/2023,05/12/2022,05/23/2020,04/28,06/18/2018,06/15/2017,06/09/2016 ,05/07/2015,05/02/2014,04/14/2013 Influenza, injectable, triva lent, preservative free 07/19/2004,05/09/2004 MMR 05/09/2004 MMRV 03/24/2007 Meningococcal Conj (Menactra) MCV4P 07/01/2019,1 Pneumococcal Conjugate 03/19/2005,2003,2003,06/08 Tdap 05/02/2014 Varicella 05/09/2004 Family History Medical History Relation Name Comments ADD / ADHD Father Arthritis Maternal Grandmother No Known Problems Mother Relation Name Status Comments Father Alive Father's Sister edgy, diffic ult but no drug or alcohol issues, no day or week long navarro spells or sadaf. Maternal Grandfather lung de ceased Maternal Grandmother Alive SLE, fi bromyalgia, arthritis Mother Alive Paternal Grandfather Alive triple bypass Paternal Grandmother Alive liver c ancer, fibromyalgia Social History Tobacco Use Types Packs/Day Years Used Date Smoking Tobacco: Never Smokeless Tobacco: Never Tobacco Cessation:Counseling Given: Not Answered Alcohol Use Standard Drinks/Week Comments Never 0 (1 standard drink = 0.6 oz pur e alcohol) Hunger/Food Answer Date Recorded In the last 12 months, did y ou or your family ever eat less than you felt you should because there wasn't enough money for food? No 04/21/2023 Stable Housing Answer Date Recorded Are you worried that in the next 2 months you may not have stable housing? No 04/21/2023 Transportation Concerns Answer Date Rec orded In the last 12 months, have you or your family ever had to go without healthcare because you didn't have a way to get there? No 04/21/2023 Hazards in Home Answer Date Recorded Think about the place you li ve. Do you have problems with any of the following? Pests (mice or roaches), mold, no/not working smoke detectors, water leaks, no window guards. No 2022 Financing Utilities Answer Date Recorde d In the last 12 months, has t he electric, gas, oil, or water company threatened to shut off your services in your home? No 04/21/2023 Safety at Home Answer Date Recorded Are you or your family worried about feeling saf e in your home? No 04/21/2023 Outside Support Answer Date Recorded Do you feel that you need mo re support from other people or programs to help you care for yourself or your family? No 04/21/2023 Understanding Health Concerns Answer Da te Recorded Do you need help understandi ng your or your child's healthcare needs (diagnosis, medications, plan, etc.)? No 04/21/2023 Financing Health Concerns Answer Date R ecorded In the last 12 months, was t here a time when your child needed to see a doctor or get medications or supplies but could not because of cost? No 04/21/2023 Missing School or Work Answer Date Xavier rded Did you or your child miss s chool or work because of a health problem that could have been avoided? No 04/21/2023 Comments No Sex and Gender Information Value Date Recorded Sex Assigned at Female 04/21/2023 3:23 PM EDT Legal Sex Female 6:13 PM EDT Gender Identity Female 04/21/2023 3:23 PM EDT Sexual Orientation Straight 04/21/2023 3: 23 PM EDT Last Filed Vital Signs Vital Sign Reading Time Taken Comments Blood Pressure 104/72 10/27/2023 11:28 AM EDT Pulse 72 12/30/2022 11:39 AM EDT Temperature 37.1 C (98.7 F) 02/09/2023 10:00 AM EDT Respiratory Rate - - Oxygen Saturation 98% 12/30/2022 11:39 AM EDT Inhaled Oxygen Concentration - - Weight 55.4 kg (122 lb 2 oz) 10/13/2023 1:19 PM EDT Height 156.5 cm (5' 1.6 ) 10/13/2023 1:19 PM EDT Body Mass Index 22.63 10/13/2023 1:19 PM EDT Plan of Treatment Health Maintenance Due Date Last Done Comments Men B Vaccine (1 of 2 - Standard) 2019 DTaP,Tdap,and Td Vaccines (7 - Td or Tdap) 05/02/2024 05/02/2014, 03/15/2008, 07/01/2004, Additional history exists Influenza Vaccines (#1) 2025 04/21/20, 05/12/2022, 05/23/2020, Additional history exists COVID-19 Vaccine ( - 2024-2 6 season) 2025 04/21/2023, 05/12/2022, 03/03/2022 Hepatitis B Vaccines Completed 01/17/2004, 2003, 2003 HIB Vaccines Completed 07/01/2004, 09/18, 2003, Additional history exists Pneumococcal Vaccine Completed 03/19/2005, 07/01/2004, 2003, Additional history exists MMR Vaccines Completed 03/24/2007, 05/09/2004 Varicella Vaccines Completed 03/24/2007, 05/09/2004 IPV Vaccines Completed 03/15/2008, 12/20, 2003, Additional history exists HPV Vaccines Completed 05/07/2015, 05/02/2014 Hepatitis A Vaccines Completed 06/18/2018, 06/15/20 17 Meningococcal Vaccine Completed 07/01/2019, 014 Procedures * Due to [place] hetras law, this organization might not be sharing sensitive test results. Procedure Name Priority Date/Time Associated Diagnosis Comments CHLAMYDIA AND GONORRHEA, AMPLIFIED Routine 10/27/2023 11:42 AM EDT Generalized abdominal pain from Last 3 Months or Most Recently Relevant to Health Maintenance Results * Due to [place] hetras law, this organization might not be sharing sensitive test results. * Chlamydia and Gonorrhoea, Amplified (10/27/2023 11:42 AM EDT) C trach AGUSTIN Negative Negative [facility] N gonorrhoeae AGUSTIN Negative Negative [facility] Urine (Urine) 10/27/2023 11: 42 AM EDT 10/27/2023 Comment:Urine Narrative [facility] - 10/29/2023 6:06 PM EDT Performed at: 01 - [facility] [id number] Manager Digital Ad Operations: Sun Sutton MD, Phone: [phone] us Dania Tyler MD LAB MICROBIOLOGY - GENERAL ORDER [place]INSON Final Result [facility] [address] [place] [address] from Last 3 Months or Most Recently Relevant to Health Maintenance Insurance [facility] NON P[facility] NON PCC
--- OUTSIDE RECORDS SUMMARY | 2025-07-06 10:20 | XMS_ITS | Clinical Summary ---
Author Organization [facility] Address [address] [place] [address] Care Team Providers Care Dope And Fabric Worker Name Role Phone Unavailable Primary Care Provider Unavailabl e Source Comments Please note that some or all of the patient's information could have additional privacy protections. State laws allow health care providers to render certain types of treatment to minors without parental consent. Please do not assume that this information can be shared solely by obtaining just the consent of the patient's parent/guardian. Please determine if all or part of the patient's care was rendered without parent/guardian involvement. And, if so, obtain the minor's consent prior to disclosure.[facility] Social History Tobacco Use Types Packs/Day Years Used Date Smoking Tobacco: Never Assessed Comments Unknown Sex and Gender Information Value Date Recorded Sex Assigned at Not on file Legal Sex Female 2:27 AM EST Gender Identity Not on file Sexual Orientation Not on file Plan of Treatment Not on file
--- OUTSIDE RECORDS SUMMARY | 2025-07-06 10:20 | XMS_ITS | Encounter Summary ---
Author Organization [facility] Address [address] [place] [id number] Phone Care Team Providers Care Magistrate Name Role Phone Dania Tyler MD Primary Care Provider [phone] Encounter Details Date Type Department Care Team (Late st Contact Info) Description 08/16/2009 Documentation [facility] [place] [address] [place] [address] Family Medicine, Physician [address] [place], [place] [id number] Social History Tobacco Use Types Packs/Day Years [...] on filedocumented in this encounter Care Teams Magistrate Relationship Specialty Start Date End Date Dania Tyler MD [address] [place] [address] PCP - General Pediatrics 02/25/18 04/14/24 documented as of this encounter
--- OUTSIDE RECORDS SUMMARY | 2025-07-06 10:20 | XMS_ITS | Encounter Summary ---
Author Organization [facility] Address [address] [place] [id number] Phone Care Team Providers Care Costume Draper Name Role Phone Dania Tyler MD Primary Care Provider [phone] Encounter Details Date Type Department Care Team (Late st Contact Info) Description 08/04/2009 Documentation [facility] [place] [address] [place] [address] Family Medicine, Physician [address] [place], [place] [address] Social History Tobacco Use Types Packs/Day Years [...] on filedocumented in this encounter Care Teams Costume Draper Relationship Specialty Start Date End Date Dania Tyler MD [address] [place] [address] PCP - General Pediatrics 02/25/18 04/14/24 documented as of this encounter
== END 2025-07-06 09:47 | disposition home or self-care (01) ==
LOC: HO.HMCHD 09:11
PROVIDERS: PCP Physician Assistant; Visit Provider Student in an Organized Health Care Education/Training Program
DX: Z00.00 Encounter for general adult medical examination without abnormal findings (principal); L98.9 Disorder of the skin and subcutaneous tissue, unspecified; Z30.49 Encounter for surveillance of other contraceptives

== ENCOUNTER → 2025-07-06 09:10 | Outpatient (BNVA) | payer OTHER, SELFPAY | PROVIDERS: PCP Physician Assistant; Visit Provider Student in an Organized Health Care Education/Training Program | DX: Z00.00 Encounter for general adult medical examination without abnormal findings (principal); Z13.31 Encounter for screening for depression; Z13.39 Encounter for screening examination for other mental health and behavioral disorders; L98.9 Disorder of the skin and subcutaneous tissue, unspecified | CPT/HCPCS: 96127; 99385 ==